=== PATIENT | male | born 1995 | race Caucasian/White ===

== ENCOUNTER 2017-07-04 14:37 | Emergency (ER) | payer BC, OTHER ==
--- NOTE | 2017-07-04 16:24 | RAD ---
INDICATION: Right scrotal pain COMPARISON: None TECHNIQUE: Duplex interrogation of the scrotum was performed. FINDINGS: Testicles: The testicles are Normal in size and echogenicity. There is no evidence of testicular mass. There is symmetric flow on Doppler interrogation. There is no evidence of torsion.. The right testis measures 5.0 x 2.3 x 3.0 cm and the left 5.1 x 2.2 x 2.9 cm. There is symmetric flow on Doppler interrogation. Epididymides: There is a tiny (0.2 cm) right-sided epididymal cyst. The epididymides are normal in size. There is symmetric flow on Doppler interrogation. The right epididymal head measures 0.7 x 1.2 cm and the left 0.8 x 1.1 cm. Hydroceles: None. Varicoceles: There are left-sided varicoceles measuring up to 0.5 cm. Other: None. IMPRESSION: NO EVIDENCE OF TESTICULAR MASS OR TORSION. LEFT-SIDED VARICOCELES. INCIDENTAL TINY RIGHT-SIDED EPIDIDYMAL CYST VARICOCELES.
--- NOTE | 2017-07-04 17:02 | ED ---
GI/ HPI - HPI Summary HPI Summary: 21 male presents with intermittent right groin pain for the past week. He states that when he is in his truck with the vibration he feels the pain in his right groin. He states it intermittently radiates goes to his right lower quadrant. He denies any nausea vomiting. He denies any hematuria or dysuria. He denies any flank pain. He denies any penile discharge. He denies any history of STDs. He states he has no pain when he lifts weights. He is concerned that he has a hernia. He has no pain currently. No history of a hernia. He has no medical conditions. No diarrhea or constipation. No abdominal pain currently. - History of Current Complaint Chief Complaint: EDUrogenitalProblems Time Seen by Provider: 07/04/17 16:39 Stated Complaint: ABD PAIN-5 STAR TRANSFER Pain Intensity: 0 - Allergy/Home Medications Allergies/Adverse Reactions: Allergies Allergy/AdvReac Type Severity Reaction Status Date / Time No Known Allergies Allergy Verified 07/04/17 16:56 Home Medications: Home Medications Creatine [Creatine Anhydrous] 5 gm PO DAILY 07/04/17 [History Confirmed 07/04/17 ] PMH/Surg Hx/FS Hx/Imm Hx Endocrine/Hematology History: Denies: Hx Anticoagulant Therapy Cardiovascular History: Denies: Hx Hypertension Infectious Disease History: No Infectious Disease History: Denies: Traveled Outside the [place] in Last 30 Days - Family History Known Family History: Negative: Hypertension - Social History Alcohol Use: None Substance Use Type: Reports: None Smoking Status (MU): Never Smoked Tobacco Review of Systems Negative: Fever Negative: Chest Pain Negative: Shortness Of Breath Positive: other - right sided groin pain All Other Systems Reviewed And Are Negative: Yes Physical Exam Triage Information Reviewed: Yes Vital Signs On Initial Exam: Initial Vitals Temp Pulse Resp BP Pulse Ox 97.8 F 81 16 127/76 98 07/04/17 14:41 07/04/17 14:41 07/04/17 14:41 07/04/17 14:41 07/04/17 14:41 Vital Signs Reviewed: Yes Appearance: Positive: Well-Appearing Skin: Positive: Warm, Dry Head/Face: Positive: Normal Head/Face Inspection Eyes: Positive: Normal, Conjunctiva Clear Respiratory/Lung Sounds: Positive: Clear to Auscultation, Breath Sounds Present Cardiovascular: Positive: Normal, RRR Abdomen Description: Positive: Nontender, Soft Bowel Sounds: Positive: Present Male Genital Exam: Positive: Normal Genitalia, No Hernia. Negative: Epididymal Tenderness, Inguinal Tenderness, Scrotum Tenderness (R), Scrotum Tenderness (L) , Testicular Tenderness (R), Testicular Tenderness (L) Musculoskeletal: Positive: Normal Neurological: Positive: Normal Psychiatric: Positive: Normal Diagnostics - Vital Signs Vital Signs Temp Pulse Resp BP Pulse Ox 07/04/17 14:41 97.8 F 81 16 127/76 98 - Laboratory Lab Statement: Any lab studies that have been ordered have been reviewed, and results considered in the medical decision making process. - Ultrasound No standard instances Ultrasound Interpretation: No Acute Changes - IMPRESSION: NO EVIDENCE OF TESTICULAR MASS OR TORSION. LEFT-SIDED VARICOCELES. INCIDENTAL TINY RIGHT-SIDED EPIDIDYMAL CYST Ultrasound Interpretation Completed By: Radiologist SKYLAR Course/Dx - Course Course Of Treatment: 21 male presents with intermittent right groin pain for the past week. He states that when he is in his truck with the vibration he feels the pain in his right groin. He states it intermittently radiates goes to his right lower quadrant. He denies any nausea vomiting. He denies any hematuria or dysuria. He denies any flank pain. He denies any penile discharge. He denies any history of STDs. He states he has no pain when he lifts weights. He is concerned that he has a hernia. He has no pain currently. No history of a hernia. He has no medical conditions. No diarrhea or constipation. No abdominal pain currently. On exam normal testicular exam. No hernia felt. Nontender abdomen. Testicular ultrasound normal. Urine normal. Could have a hernia that is not present. Told if symptoms not improved follow up with urology or primary. Patient understands agrees with plan. - Diagnoses Differential Diagnoses - Male: Testicular Torsion, Urinary Tract Infection, Other - hernia Provider Diagnoses: Groin pain Discharge - Sign-Out/Discharge Documenting (check all that apply): Discharge/Admit/Transfer - Discharge Plan Condition: Good Disposition: HOME Patient Education Materials: Groin Pain (ED) Referrals: [facility] [Outside] Aravind Madrid MD [Medical Doctor] - Additional Instructions: take Tylenol every 6 hours as needed for pain Modified activities: try not to lift anything heavy If no improvement follow up with urology Return to ED if develop any new or worsening symptoms - Billing Disposition and Condition Condition: GOOD Disposition: HOME
[2017-07-04 18:06] LABS: Urine Appearance Clear; Urine Blood Negative (Negative); Urine Color Straw; Urine Ketones Negative (Negative); Urine Protein Negative (Negative); Urine Specific Gravity 1.015 (1.010-1.030); Urine Urobilinogen Negative (Negative)
[2017-07-04 18:56] VITALS: BP 120/65
== END 2017-07-04 18:49 | disposition home or self-care (01) ==
LOC: ED 14:37
DX: R10.31 Right lower quadrant pain (principal); I86.1 Scrotal varices; N50.3 Cyst of epididymis
CPT/HCPCS: 76870; 81003; 87491; 87591; 99282